=== PATIENT | female | born 1930 | race Caucasian/White ===

== ENCOUNTER 2016-02-10 11:17 | Outpatient (CLI) | payer MEDICARE, OTHER ==
[2013-04-23 13:41] VITALS: BP 148/84
== END 2016-02-10 11:20 ==
LOC: LAB 11:17
PROVIDERS: ATTEND Internal Medicine Cardiovascular Disease
DX: Z51.81 Encounter for therapeutic drug level monitoring (principal); Z79.01 Long term (current) use of anticoagulants; I48.2 Chronic atrial fibrillation
CPT/HCPCS: 36415; 85610

== ENCOUNTER 2016-03-09 11:20 | Outpatient (CLI) | payer MEDICARE, OTHER ==
[2013-04-23 13:41] VITALS: BP 148/84
== END 2016-03-09 11:23 ==
LOC: LAB 11:20
PROVIDERS: ATTEND Internal Medicine Cardiovascular Disease
DX: Z51.81 Encounter for therapeutic drug level monitoring (principal); Z79.01 Long term (current) use of anticoagulants; I48.2 Chronic atrial fibrillation
CPT/HCPCS: 36415; 85610

== ENCOUNTER 2016-04-06 13:23 | Outpatient (CLI) | payer MEDICARE, OTHER ==
[2013-04-23 13:41] VITALS: BP 148/84
== END 2016-04-06 13:24 ==
LOC: LAB 13:23
PROVIDERS: ATTEND Internal Medicine Cardiovascular Disease
DX: Z51.81 Encounter for therapeutic drug level monitoring (principal); Z79.01 Long term (current) use of anticoagulants; I48.91 Unspecified atrial fibrillation
CPT/HCPCS: 36415; 85610

== ENCOUNTER 2016-05-03 13:54 | Outpatient (CLI) | payer MEDICARE, OTHER ==
[2013-04-23 13:41] VITALS: BP 148/84
== END 2016-05-03 13:55 ==
LOC: LAB 13:54
PROVIDERS: ATTEND Internal Medicine Cardiovascular Disease
DX: Z51.81 Encounter for therapeutic drug level monitoring (principal); Z79.01 Long term (current) use of anticoagulants; I48.2 Chronic atrial fibrillation
CPT/HCPCS: 36415; 85610

== ENCOUNTER 2016-05-18 11:08 | Outpatient (CLI) | payer MEDICARE, OTHER ==
[2013-04-23 13:41] VITALS: BP 148/84
== END 2016-05-18 11:10 ==
LOC: LAB 11:08
PROVIDERS: ATTEND Internal Medicine Cardiovascular Disease
DX: Z51.81 Encounter for therapeutic drug level monitoring (principal); Z79.01 Long term (current) use of anticoagulants; I48.2 Chronic atrial fibrillation
CPT/HCPCS: 36415; 85610

== ENCOUNTER 2016-06-01 08:48 | Outpatient (CLI) | payer MEDICARE, BC ==
[2013-04-23 13:41] VITALS: BP 148/84
== END 2016-06-01 08:50 ==
LOC: LAB 08:48
PROVIDERS: ATTEND Internal Medicine Cardiovascular Disease
DX: Z51.81 Encounter for therapeutic drug level monitoring (principal); Z79.01 Long term (current) use of anticoagulants; I48.2 Chronic atrial fibrillation
CPT/HCPCS: 36415; 85610

== ENCOUNTER 2016-06-22 13:18 | Outpatient (CLI) | payer MEDICARE, BC ==
[2013-04-23 13:41] VITALS: BP 148/84
== END 2016-06-22 13:20 ==
LOC: LAB 13:18
PROVIDERS: ATTEND Internal Medicine Cardiovascular Disease
DX: I48.2 Chronic atrial fibrillation (principal)
CPT/HCPCS: 36415; 85610

== ENCOUNTER 2016-07-13 11:29 | Outpatient (CLI) | payer MEDICARE, BC ==
[2013-04-23 13:41] VITALS: BP 148/84
== END 2016-07-13 11:30 ==
LOC: LAB 11:29
PROVIDERS: ATTEND Internal Medicine Cardiovascular Disease
DX: I48.2 Chronic atrial fibrillation (principal)
CPT/HCPCS: 36415; 85610

== ENCOUNTER 2016-07-19 12:38 | Outpatient (CLI) | payer MEDICARE, OTHER ==
[2013-04-23 13:41] VITALS: BP 148/84
[2016-07-19 12:51] LABS: MEAN CORPUSCULAR VOLUME 93.9 fl (80.0-100.0)
[2016-07-19 13:01] LABS: APPEARANCE,URINE Cloudy (CLEAR); COLOR,URINE Yellow (YELLOW); OCCULT BLOOD,URINE 2+ (NEGATIVE); PH URINE 6.5 (5.0 - 8.0); UROBILINOGEN URINE 0.2 Eu (0.2-1.0)
[2016-07-19 13:15] LABS: AMORPHOUS SEDIMENT,UR FEW (NEGATIVE)
[2016-07-19 13:26] LABS: eGFR (African) > 60; eGFR (Non-African) > 60
== END 2016-07-19 12:40 ==
LOC: LAB 12:38
PROVIDERS: ATTEND Family Medicine
DX: I10 Essential (primary) hypertension (principal); R10.9 Unspecified abdominal pain
CPT/HCPCS: 36415; 80053; 81002; 85027; 85610; 87086; 87186

== ENCOUNTER 2016-07-22 14:16 | Outpatient (CLI) | payer MEDICARE, OTHER ==
[2013-04-23 13:41] VITALS: BP 148/84
== END 2016-07-22 14:17 ==
LOC: LAB 14:16
PROVIDERS: ATTEND Internal Medicine Cardiovascular Disease
DX: I48.2 Chronic atrial fibrillation (principal)
CPT/HCPCS: 36415; 85610

== ENCOUNTER 2016-07-26 10:55 | Outpatient (CLI) | payer MEDICARE, OTHER ==
[2013-04-23 13:41] VITALS: BP 148/84
== END 2016-07-26 14:00 ==
LOC: LAB 10:55
PROVIDERS: ATTEND Internal Medicine Cardiovascular Disease
DX: R63.4 Abnormal weight loss (principal); I48.2 Chronic atrial fibrillation
CPT/HCPCS: 36415; 85610

== ENCOUNTER 2016-07-26 12:19 | Outpatient (CLI) | payer MEDICARE, OTHER ==
[2013-04-23 13:41] VITALS: BP 148/84
== END 2016-07-26 13:02 ==
LOC: LAB 12:19
PROVIDERS: ATTEND Family Medicine
DX: E03.9 Hypothyroidism, unspecified (principal)
CPT/HCPCS: 84443

== ENCOUNTER 2016-07-29 09:55 | Outpatient (CLI) | payer MEDICARE, OTHER ==
[2013-04-23 13:41] VITALS: BP 148/84
== END 2016-07-29 10:00 ==
LOC: LAB 09:55
PROVIDERS: ATTEND Internal Medicine Cardiovascular Disease
DX: I48.2 Chronic atrial fibrillation (principal)
CPT/HCPCS: 36415; 85610

== ENCOUNTER 2016-08-01 07:33 | Outpatient (CLI) | payer MEDICARE, OTHER ==
[2013-04-23 13:41] VITALS: BP 148/84
--- NOTE | 2016-08-01 14:10 | Diagnostic Imaging Report ---
CANDI ACOSTA~ [facility] [address] [facility]. [address] [place] [address]. [id number] ~ ~ ~ ~ Report Submission Date: Aug 01, 2016 8:51:18 AM CDT Patient ~ Study Name: LIYA PATEL ~ Date: Aug 01, 2016 7:55:41 AM CDT ~ Modality Type: MR Gender: F ~ Description: MRI BRAIN W/O CONTRAST : 30 ~ Institution: [facility] Physician: CANDI ACOSTA ~ ~ ~ ~ HISTORY: ~86-year-old female with lower extremity weakness. COMPARISON: None available TECHNIQUE: Multiplanar multisequence noncontrast MR images of the brain were performed. FINDINGS: There is global brain atrophy with prominence of the ventricular system and sulci. ~There is moderate to severe high T2-FLAIR signal abnormality in the periventricular and bicerebral white matter. 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 ~There are old lacunar infarcts of the seble and right cerebellum. ~There is encephalomalacia and chronic ischemic changes of the bilateral basal ganglia. ~No intracranial mass, midline shift, hydrocephalus, or signal abnormalities in the supra- or infratentorial juarez or white matter. ~ The diffusion-weighted images are negative for acute infarct. ~Flow voids are present in the major intracranial vessels. ~The corpus callosum, sella, pituitary, and craniovertebral junction are unremarkable. ~The paranasal sinuses and mastoid air cells are clear. There are postoperative changes of bilateral cataract extraction surgery. ~The patient is edentulous. IMPRESSION: Global brain atrophy and chronic ischemic changes without evidence of acute infarct or other acute intracranial process. ~ Electronically signed on Aug 01, 2016 8:51:18 AM CDT by: Emery DRISCOLL
== END 2016-08-01 08:00 ==
LOC: RAD 07:33
PROVIDERS: ATTEND Family Medicine
DX: R25.1 Tremor, unspecified (principal)
CPT/HCPCS: 70551

== ENCOUNTER 2016-08-03 11:22 | Outpatient (CLI) | payer MEDICARE, OTHER ==
[2013-04-23 13:41] VITALS: BP 148/84
== END 2016-08-03 11:23 ==
LOC: LAB 11:22
PROVIDERS: ATTEND Internal Medicine Cardiovascular Disease
DX: I48.2 Chronic atrial fibrillation (principal); Z51.81 Encounter for therapeutic drug level monitoring; Z79.01 Long term (current) use of anticoagulants
CPT/HCPCS: 36415; 85610

== ENCOUNTER 2016-08-17 11:10 | Outpatient (CLI) | payer MEDICARE, OTHER ==
[2013-04-23 13:41] VITALS: BP 148/84
== END 2016-08-17 11:11 ==
LOC: LAB 11:10
PROVIDERS: ATTEND Internal Medicine Cardiovascular Disease
DX: I48.2 Chronic atrial fibrillation (principal)
CPT/HCPCS: 36415; 85610

== ENCOUNTER 2016-08-31 13:58 | Outpatient (CLI) | payer MEDICARE, OTHER ==
[2013-04-23 13:41] VITALS: BP 148/84
== END 2016-08-31 14:00 ==
LOC: LAB 13:58
PROVIDERS: ATTEND Internal Medicine Cardiovascular Disease
DX: I48.2 Chronic atrial fibrillation (principal)
CPT/HCPCS: 36415; 85610

== ENCOUNTER 2016-09-28 12:36 | Outpatient (CLI) | payer MEDICARE, OTHER ==
[2013-04-23 13:41] VITALS: BP 148/84
== END 2016-09-28 12:37 ==
LOC: LAB 12:36
PROVIDERS: ATTEND Internal Medicine Cardiovascular Disease
DX: I48.2 Chronic atrial fibrillation (principal)
CPT/HCPCS: 36415; 85610

== ENCOUNTER 2016-10-27 12:52 | Outpatient (CLI) | payer MEDICARE, OTHER ==
[2013-04-23 13:41] VITALS: BP 148/84
== END 2016-10-27 12:53 ==
LOC: LAB 12:52
PROVIDERS: ATTEND Internal Medicine Cardiovascular Disease
DX: I48.2 Chronic atrial fibrillation (principal)
CPT/HCPCS: 36415; 85610

== ENCOUNTER 2016-11-24 13:46 | Outpatient (CLI) | payer MEDICARE, OTHER ==
[2013-04-23 13:41] VITALS: BP 148/84
== END 2016-11-24 13:47 ==
LOC: LAB 13:46
PROVIDERS: ATTEND Internal Medicine Cardiovascular Disease
DX: I48.2 Chronic atrial fibrillation (principal)
CPT/HCPCS: 36415; 85610

== ENCOUNTER 2016-12-23 11:35 | Outpatient (CLI) | payer MEDICARE, OTHER ==
[2013-04-23 13:41] VITALS: BP 148/84
== END 2016-12-23 13:27 ==
LOC: LAB 11:35
PROVIDERS: ATTEND Internal Medicine Cardiovascular Disease
DX: I48.2 Chronic atrial fibrillation (principal)
CPT/HCPCS: 36415; 85610

== ENCOUNTER → 2017-01-20 | Outpatient (CLI) | payer MEDICARE, OTHER ==
[2013-04-23 13:41] VITALS: BP 148/84
== END ==
LOC: LAB 14:58
PROVIDERS: ATTEND Internal Medicine Cardiovascular Disease
DX: Z79.01 Long term (current) use of anticoagulants (principal)
CPT/HCPCS: 36415; 85610

== ENCOUNTER 2017-02-03 11:25 | Outpatient (CLI) | payer MEDICARE, OTHER ==
[2013-04-23 13:41] VITALS: BP 148/84
== END 2017-02-03 11:26 ==
LOC: LAB 11:25
PROVIDERS: ATTEND Internal Medicine Cardiovascular Disease
DX: Z79.01 Long term (current) use of anticoagulants (principal)
CPT/HCPCS: 36415; 85610

== ENCOUNTER 2017-03-03 11:38 | Outpatient (CLI) | payer MEDICARE, OTHER ==
[2013-04-23 13:41] VITALS: BP 148/84
== END 2017-03-03 11:40 ==
LOC: LAB 11:38
PROVIDERS: ATTEND Internal Medicine Cardiovascular Disease
DX: Z79.01 Long term (current) use of anticoagulants (principal)
CPT/HCPCS: 36415; 85610

== ENCOUNTER 2017-04-01 11:31 | Outpatient (CLI) | payer MEDICARE, OTHER ==
[2013-04-23 13:41] VITALS: BP 148/84
== END 2017-04-01 11:33 ==
LOC: LAB 11:31
PROVIDERS: ATTEND Internal Medicine Cardiovascular Disease
DX: Z79.01 Long term (current) use of anticoagulants (principal)
CPT/HCPCS: 36415; 85610

== ENCOUNTER 2017-04-29 14:21 | Outpatient (CLI) | payer MEDICARE, OTHER ==
[2013-04-23 13:41] VITALS: BP 148/84
== END 2017-04-29 14:22 ==
LOC: LAB 14:21
PROVIDERS: ATTEND Internal Medicine Cardiovascular Disease
DX: Z79.01 Long term (current) use of anticoagulants (principal)
CPT/HCPCS: 36415; 85610

== ENCOUNTER 2017-05-13 11:06 | Outpatient (CLI) | payer MEDICARE, OTHER ==
[2013-04-23 13:41] VITALS: BP 148/84
== END 2017-05-13 11:10 ==
LOC: LAB 11:06
PROVIDERS: ATTEND Internal Medicine Cardiovascular Disease
DX: Z79.01 Long term (current) use of anticoagulants (principal)
CPT/HCPCS: 36415; 85610

== ENCOUNTER 2017-05-31 14:13 | Outpatient (CLI) | payer MEDICARE, OTHER ==
[2013-04-23 13:41] VITALS: BP 148/84
== END 2017-05-31 14:14 ==
LOC: LAB 14:13
PROVIDERS: ATTEND Internal Medicine Cardiovascular Disease
DX: Z79.01 Long term (current) use of anticoagulants (principal)
CPT/HCPCS: 36415; 85610

== ENCOUNTER 2017-06-14 10:37 | Outpatient (CLI) | payer MEDICARE, OTHER ==
[2013-04-23 13:41] VITALS: BP 148/84
== END 2017-06-14 10:40 ==
LOC: LAB 10:37
PROVIDERS: ATTEND Internal Medicine Cardiovascular Disease
DX: Z79.01 Long term (current) use of anticoagulants (principal)
CPT/HCPCS: 36415; 85610

== ENCOUNTER 2017-07-12 13:37 | Outpatient (CLI) | payer MEDICARE, OTHER ==
[2013-04-23 13:41] VITALS: BP 148/84
== END 2017-07-12 13:40 ==
LOC: LAB 13:37
PROVIDERS: ATTEND Internal Medicine Cardiovascular Disease
DX: Z79.01 Long term (current) use of anticoagulants (principal)
CPT/HCPCS: 36415; 85610

== ENCOUNTER 2017-08-11 10:06 | Outpatient (CLI) | payer MEDICARE, OTHER ==
[2013-04-23 13:41] VITALS: BP 148/84
== END 2017-08-11 10:08 ==
LOC: LAB 10:06
PROVIDERS: ATTEND Internal Medicine Cardiovascular Disease
DX: Z79.01 Long term (current) use of anticoagulants (principal)
CPT/HCPCS: 36415; 85610

== ENCOUNTER 2017-09-08 11:46 | Outpatient (CLI) | payer MEDICARE, OTHER ==
[2013-04-23 13:41] VITALS: BP 148/84
== END 2017-09-08 11:48 ==
LOC: LAB 11:46
PROVIDERS: ATTEND Internal Medicine Cardiovascular Disease
DX: Z79.01 Long term (current) use of anticoagulants (principal)
CPT/HCPCS: 36415; 85610

== ENCOUNTER 2017-09-22 11:12 | Outpatient (CLI) | payer MEDICARE, OTHER ==
[2013-04-23 13:41] VITALS: BP 148/84
== END 2017-09-22 11:13 ==
LOC: LAB 11:12
PROVIDERS: ATTEND Internal Medicine Cardiovascular Disease
DX: Z79.01 Long term (current) use of anticoagulants (principal)
CPT/HCPCS: 36415; 85610

== ENCOUNTER 2017-09-30 10:55 | Outpatient (CLI) | payer MEDICARE, OTHER ==
[2013-04-23 13:41] VITALS: BP 148/84
--- NOTE | 2017-09-30 19:43 | Diagnostic Imaging Report ---
CANDI ACOSTA [facility] [address] [facility] [address] [address] Report Submission Date: Sep 30, 2017 12:16:55 PM CDT Patient Study Name: LIYA PATEL Date: Sep 30, 2017 11:04:51 AM CDT Modality Type: DX Gender: F Description: SHOULDER : 30 Institution: [facility] Physician: CANDI ACOSTA Right shoulder History: Pain after fall 4 weeks ago Three views of the right shoulder were obtained which demonstrate acute fractures involving the right posterolateral 3rd, 4th and 5th ribs and old fracture of right posterolateral 6th rib. There is mild narrowing of the subacromial joint space. The acromioclavicular joint is intact. There is no evidence for acute fracture or dislocation of the right shoulder. Impression: Acute and mildly displaced fractures are present of the right 3rd, 4th and 5th ribs. There is an old, healed fracture of the 6th posterolateral right rib. No pneumothorax. Narrowing of subacromial joint space. No evidence for acute shoulder fracture. Electronically signed on Sep 30, 2017 12:16:55 PM CDT by: Michaela DRISCOLL
--- NOTE | 2017-09-30 19:44 | Diagnostic Imaging Report ---
CANDI ACOSTA [facility] [address] [facility] [address] Report Submission Date: Sep 30, 2017 12:17:46 PM CDT Patient Study Name: LIYA PATEL Date: Sep 30, 2017 11:13:08 AM CDT Modality Type: DX Gender: F Description: UPPER EXTREMITY : 30 Institution: [facility] Physician: CANDI ACOSTA Right humerus History: Pain after a fall 4 weeks ago Three views of the right humerus demonstrate no evidence for acute fracture or dislocation. Impression: No evidence for acute fracture or dislocation of the right humerus. Electronically signed on Sep 30, 2017 12:17:46 PM CDT by: Michaela DRISCOLL
== END 2017-09-30 11:50 ==
LOC: RAD 10:55
PROVIDERS: ATTEND Family Medicine
DX: M25.511 Pain in right shoulder (principal)
CPT/HCPCS: 73030; 73060

== ENCOUNTER 2017-10-06 13:41 | Outpatient (CLI) | payer MEDICARE, OTHER ==
[2013-04-23 13:41] VITALS: BP 148/84
== END 2017-10-06 13:42 ==
LOC: LAB 13:41
PROVIDERS: ATTEND Internal Medicine Cardiovascular Disease
DX: Z79.01 Long term (current) use of anticoagulants (principal)
CPT/HCPCS: 36415; 85610

== ENCOUNTER 2017-10-21 11:38 | Outpatient (CLI) | payer MEDICARE, OTHER ==
[2013-04-23 13:41] VITALS: BP 148/84
== END 2017-10-21 11:40 ==
LOC: LAB 11:38
PROVIDERS: ATTEND Internal Medicine Cardiovascular Disease
DX: Z79.01 Long term (current) use of anticoagulants (principal)
CPT/HCPCS: 36415; 85610

== ENCOUNTER 2017-10-25 14:34 | Outpatient (CLI) | payer MEDICARE, OTHER ==
[2013-04-23 13:41] VITALS: BP 148/84
[2017-10-25 16:34] LABS: eGFR (Non-African) > 60
[2017-10-26 02:21] LABS: BASO % 0.3 % (0.0-1.5); EOS % 2.4 % (0.0-6.8); LYMPH ABS # 1.26 thou/uL (0.60-4.00); MCH. 31.5 pg (28.0-34.0); MCV 97.2 fL (80.0-100.0); MONOCYTE ABS # 0.39 thou/uL (0.00-0.90); PLATELET COUNT 221 thou/uL (130-400)
== END 2017-10-25 14:35 ==
LOC: LAB 14:34
PROVIDERS: ATTEND Nurse Practitioner
DX: Z79.01 Long term (current) use of anticoagulants (principal); I10 Essential (primary) hypertension; I48.2 Chronic atrial fibrillation
CPT/HCPCS: 36415; 80053; 80061; 84443; 85025; 85610

== ENCOUNTER 2017-11-03 09:14 | Outpatient (CLI) | payer MEDICARE, OTHER ==
[2013-04-23 13:41] VITALS: BP 148/84
== END 2017-11-03 09:16 ==
LOC: LAB 09:14
PROVIDERS: ATTEND Internal Medicine Cardiovascular Disease
DX: Z79.01 Long term (current) use of anticoagulants (principal)
CPT/HCPCS: 36415; 85610

== ENCOUNTER 2017-11-17 10:13 | Outpatient (CLI) | payer MEDICARE, OTHER ==
[2013-04-23 13:41] VITALS: BP 148/84
== END 2017-11-17 10:14 ==
LOC: LAB 10:13
PROVIDERS: ATTEND Internal Medicine Cardiovascular Disease
DX: Z79.01 Long term (current) use of anticoagulants (principal)
CPT/HCPCS: 36415; 85610

== ENCOUNTER 2017-12-01 10:39 | Outpatient (CLI) | payer MEDICARE, OTHER ==
[2013-04-23 13:41] VITALS: BP 148/84
== END 2017-12-01 15:27 ==
LOC: LAB 10:39
PROVIDERS: ATTEND Internal Medicine Cardiovascular Disease
DX: Z79.01 Long term (current) use of anticoagulants (principal)
CPT/HCPCS: 36415; 85610

== ENCOUNTER 2017-12-08 11:28 | Outpatient (CLI) | payer MEDICARE, OTHER ==
[2013-04-23 13:41] VITALS: BP 148/84
== END 2017-12-08 11:30 ==
LOC: LAB 11:28
PROVIDERS: ATTEND Internal Medicine Cardiovascular Disease
DX: Z79.01 Long term (current) use of anticoagulants (principal)
CPT/HCPCS: 36415; 85610

== ENCOUNTER 2017-12-22 10:49 | Outpatient (CLI) | payer MEDICARE, OTHER ==
[2013-04-23 13:41] VITALS: BP 148/84
== END 2017-12-22 10:54 | disposition home or self-care (01) ==
LOC: LAB 10:49
PROVIDERS: ATTEND Internal Medicine Cardiovascular Disease
DX: Z79.01 Long term (current) use of anticoagulants (principal)
CPT/HCPCS: 36415; 85610

== ENCOUNTER 2018-01-05 10:48 | Outpatient (CLI) | payer MEDICARE, OTHER ==
[2013-04-23 13:41] VITALS: BP 148/84
== END 2018-01-05 10:50 ==
LOC: LAB 10:48
PROVIDERS: ATTEND Internal Medicine Cardiovascular Disease
DX: Z79.01 Long term (current) use of anticoagulants (principal)
CPT/HCPCS: 36415; 85610

== ENCOUNTER 2018-01-19 11:26 | Outpatient (CLI) | payer MEDICARE, OTHER ==
[2013-04-23 13:41] VITALS: BP 148/84
== END 2018-01-19 14:12 ==
LOC: LAB 11:26
PROVIDERS: ATTEND Internal Medicine Cardiovascular Disease
DX: Z79.01 Long term (current) use of anticoagulants (principal); Z51.81 Encounter for therapeutic drug level monitoring
CPT/HCPCS: 36415; 85610

== ENCOUNTER 2018-02-02 11:26 | Outpatient (CLI) | payer MEDICARE, OTHER ==
[2013-04-23 13:41] VITALS: BP 148/84
== END 2018-02-02 11:28 ==
LOC: LAB 11:26
PROVIDERS: ATTEND Internal Medicine Cardiovascular Disease
DX: Z79.01 Long term (current) use of anticoagulants (principal)
CPT/HCPCS: 36415; 85610

== ENCOUNTER 2018-02-16 10:10 | Outpatient (CLI) | payer MEDICARE, OTHER ==
[2013-04-23 13:41] VITALS: BP 148/84
== END 2018-02-16 10:12 ==
LOC: LAB 10:10
PROVIDERS: ATTEND Internal Medicine Cardiovascular Disease
DX: Z79.01 Long term (current) use of anticoagulants (principal)
CPT/HCPCS: 36415; 85610

== ENCOUNTER 2018-03-02 11:33 | Outpatient (CLI) | payer MEDICARE, OTHER ==
[2013-04-23 13:41] VITALS: BP 148/84
== END 2018-03-02 11:35 ==
LOC: LAB 11:33
PROVIDERS: ATTEND Internal Medicine Cardiovascular Disease
DX: Z79.01 Long term (current) use of anticoagulants (principal)
CPT/HCPCS: 36415; 85610

== ENCOUNTER 2018-03-31 09:36 | Outpatient (CLI) | payer MEDICARE, OTHER ==
[2013-04-23 13:41] VITALS: BP 148/84
== END 2018-03-31 09:45 ==
LOC: LAB 09:36
PROVIDERS: ATTEND Internal Medicine Cardiovascular Disease
DX: Z79.01 Long term (current) use of anticoagulants (principal)
CPT/HCPCS: 36415; 85610

== ENCOUNTER 2018-04-27 10:47 | Outpatient (CLI) | payer MEDICARE, OTHER ==
[2013-04-23 13:41] VITALS: BP 148/84
== END 2018-04-27 10:50 ==
LOC: LAB 10:47
PROVIDERS: ATTEND Internal Medicine Cardiovascular Disease
DX: Z79.01 Long term (current) use of anticoagulants (principal)
CPT/HCPCS: 36415; 85610

== ENCOUNTER 2018-05-18 10:14 | Outpatient (CLI) | payer MEDICARE, OTHER ==
[2013-04-23 13:41] VITALS: BP 148/84
== END 2018-05-18 12:57 ==
LOC: LAB 10:14
PROVIDERS: ATTEND Internal Medicine Cardiovascular Disease
DX: Z79.01 Long term (current) use of anticoagulants (principal)
CPT/HCPCS: 36415; 85610

== ENCOUNTER 2018-05-20 18:57 | Emergency (ER) | payer MEDICARE, OTHER ==
--- NOTE | 2018-05-20 19:22 | ED Physician Documentation ---
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 Pt went down on both knees and had an abrasion to her face with some swelling. Pt has FROM in both knees with superficial abrasions. No pain with weight bearing. Pt has swelling of her L cheeck with some ecchymosis. Pt is on coumadin. INR 2 days ago was 3.1.) - ROS CONST: no problems EYES/ENT: other CVS/RESP: none GI/: none MS/SKIN/LYMPH: other (abrasions b/l knees; abrasion chin and L cheek with swelling and ecchymosis) NEURO/PSYCH: denies: headache, dizziness, tingling - PAST HX Past History: A-Fib, hypertension Allergies/Adverse Reactions: Allergies Allergy/AdvReac Type Severity Reaction Status Date / Time ADRISTAN Allergy Uncoded 05/20/18 19:33 Home Medications: Ambulatory Orders Medication Instructions Recorded Warfarin Sodium 2 mg PO [id number] 05/20/18 Warfarin Sodium 4 mg PO [id number] 05/20/18 - SOCIAL HX Smoking History: non-smoker - FAMILY HX Family History: No - VITAL SIGNS Vital Signs: Vital Signs Temp Pulse Resp BP Pulse Ox 148/84 04/23/13 13:38 - REVIEWED ASSESSMENTS Nursing Assessment Reviewed: Yes Vitals Reviewed: Yes Progress - Progress Progress: CT head: 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 Atrophy and chronic periventricular microvascular ischemic changes are present. There is no evidence of intracranial mass effect, hemorrhage, or acute hydrocephalus. The lateral ventricles are symmetrical and the 4th ventricle is midline without shift. No acute brain parenchymal changes or extra-axial fluid collections are identified. The posterior fossa contents are within normal limits. A left facial soft tissue infraorbital hematoma is present. The calvarium is intact. The visualized sinuses and mastoid air cells are clear. IMPRESSION: Multiple chronic infarcts. Atrophy and chronic periventricular microvascular ischemic changes. Left infraorbital hematoma. BP 180/110 Propranolol 10 mg po BP 160/100 after 30 min Follow up with your primary provider for recheck of your blood pressure and review of blood pressure medications. Return to ER if you develop new symptoms such as numbness or weakness in an extremity, changes in vision or have new concerns. General Adult Physical Exam - PHYSICAL EXAM GENERAL APPEARANCE: mild distress EENT: eye inspection normal, ENT inspection normal, pharynx normal NECK: normal inspection, supple RESPIRATORY: no resp distress, chest non-tender, breath sounds normal CVS: irregularly irregular rhy ABDOMEN: soft, no organomegaly, normal bowel sounds BACK: normal inspection, no CVA tenderness SKIN: other (abrasions b/l knees, chin, L cheek with swelling c/w hematoma and ecchymosis) EXTREMITIES: normal range of motion, other (abrasions b/l knees) NEURO: oriented X3, CN's nml as tested, motor nml, sensation nml Discharge Clincal Impression: Minor head trauma Fall Qualifiers: Encounter type: initial encounter Qualified Code(s): W19.XXXA - Unspecified fall, initial encounter HTN (hypertension) Qualifiers: Hypertension type: unspecified Qualified Code(s): I10 - Essential (primary) hypertension Referrals: Issa Benz MD [Primary Care Provider] - Condition: Stable Disposition: 01 HOME, SELF-CARE Decision to Admit: NO Decision Time: 21:40
[2018-05-20] MEDS ORDERED: PROPRANOLOL HCL 20 MG TABLET PO STA (20:21)
[2018-05-20 22:25] VITALS: BP 161/103
--- NOTE | 2018-05-21 06:12 | Diagnostic Imaging Report ---
RAGINI MOSS [facility] [address] [facility] [address] [place], [place]. [address] Report Submission Date: May 20, 2018 8:13:00 PM CDT Patient Study Name: LIYA PATEL Date: May 20, 2018 7:47:55 PM CDT Modality Type: CT\SR Gender: F Description: CT BRAIN W/O CONTRAST : 30 Institution: [facility] Physician: RAGINI MOSS CT brain noncontrast Date of study: May 20, 2018. CLINICAL HISTORY: FALL FROM STANDING, HEAD TRAUMA, SWELLING AROUND LEFT EYE (Hx) / ITS.REASON fall from standing, head trauma TECHNIQUE: 5 mm contiguous axial images of the brain, noncontrast. FINDINGS: 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 Atrophy and chronic periventricular microvascular ischemic changes are present. There is no evidence of intracranial mass effect, hemorrhage, or acute hydrocephalus. The lateral ventricles are symmetrical and the 4th ventricle is midline without shift. No acute brain parenchymal changes or extra-axial fluid collections are identified. The posterior fossa contents are within normal limits. A left facial soft tissue infraorbital hematoma is present. The calvarium is intact. The visualized sinuses and mastoid air cells are clear. IMPRESSION: Multiple chronic infarcts. Atrophy and chronic periventricular microvascular ischemic changes. Left infraorbital hematoma. Electronically signed on May 20, 2018 8:13:00 PM CDT by: Linda DRISCOLL
== END 2018-05-20 21:15 | disposition home or self-care (01) ==
LOC: ED 18:57
DX: S00.81XA Abrasion of other part of head, initial encounter (principal); S80.212A Abrasion, left knee, initial encounter; S80.211A Abrasion, right knee, initial encounter; S09.90XA Unspecified injury of head, initial encounter; I10 Essential (primary) hypertension; W01.0XXA Fall on same level from slipping, tripping and stumbling without subsequent striking against object, initial encounter; Y93.9 Activity, unspecified; Y92.9 Unspecified place or not applicable
CPT/HCPCS: 70450; 99283; 99284

== ENCOUNTER 2018-06-26 11:04 | Outpatient (CLI) | payer MEDICARE, OTHER | END 2018-06-26 11:06 | LOC: LAB 11:04 | PROVIDERS: ATTEND Internal Medicine Cardiovascular Disease | DX: Z79.01 Long term (current) use of anticoagulants (principal) | CPT/HCPCS: 36415; 85610 ==

== ENCOUNTER 2018-08-07 11:32 | Outpatient (CLI) | payer MEDICARE, OTHER | END 2018-08-07 11:33 | LOC: LAB 11:32 | PROVIDERS: ATTEND Internal Medicine Cardiovascular Disease | DX: Z79.01 Long term (current) use of anticoagulants (principal); Z51.81 Encounter for therapeutic drug level monitoring | CPT/HCPCS: 36415; 85610 ==

== ENCOUNTER 2018-10-02 11:45 | Outpatient (CLI) | payer MEDICARE, OTHER | END 2018-10-02 11:47 | LOC: LAB 11:45 | PROVIDERS: ATTEND Internal Medicine Cardiovascular Disease | DX: Z51.81 Encounter for therapeutic drug level monitoring (principal); Z79.01 Long term (current) use of anticoagulants | CPT/HCPCS: 36415; 85610 ==

== ENCOUNTER 2018-10-16 11:36 | Outpatient (CLI) | payer MEDICARE, OTHER | END 2018-10-16 11:38 | LOC: LAB 11:36 | PROVIDERS: ATTEND Internal Medicine Cardiovascular Disease | DX: Z51.81 Encounter for therapeutic drug level monitoring (principal); Z79.01 Long term (current) use of anticoagulants | CPT/HCPCS: 36415; 85610 ==

== ENCOUNTER 2018-10-23 11:41 | Outpatient (CLI) | payer MEDICARE, OTHER | END 2018-10-23 11:43 | LOC: LAB 11:41 | PROVIDERS: ATTEND Internal Medicine Cardiovascular Disease | DX: Z51.81 Encounter for therapeutic drug level monitoring (principal); Z79.01 Long term (current) use of anticoagulants | CPT/HCPCS: 36415; 85610 ==

== ENCOUNTER 2018-10-30 11:06 | Outpatient (CLI) | payer MEDICARE, OTHER | END 2018-10-30 11:08 | LOC: LAB 11:06 | PROVIDERS: ATTEND Internal Medicine Cardiovascular Disease | DX: Z79.01 Long term (current) use of anticoagulants (principal); Z51.81 Encounter for therapeutic drug level monitoring | CPT/HCPCS: 36415; 85610 ==

== ENCOUNTER 2018-11-13 11:29 | Outpatient (CLI) | payer MEDICARE, OTHER | END 2018-11-13 11:35 | LOC: LAB 11:29 | PROVIDERS: ATTEND Internal Medicine Cardiovascular Disease | DX: Z51.81 Encounter for therapeutic drug level monitoring (principal); Z79.01 Long term (current) use of anticoagulants | CPT/HCPCS: 36415; 85610 ==

== ENCOUNTER 2018-11-27 11:04 | Outpatient (CLI) | payer MEDICARE, OTHER | END 2018-11-27 11:09 | LOC: LAB 11:04 | PROVIDERS: ATTEND Internal Medicine Cardiovascular Disease | DX: Z79.01 Long term (current) use of anticoagulants (principal) | CPT/HCPCS: 36415; 85610 ==

== ENCOUNTER 2018-12-11 09:44 | Outpatient (CLI) | payer MEDICARE, OTHER | END 2018-12-11 09:49 | LOC: LAB 09:44 | PROVIDERS: ATTEND Internal Medicine Cardiovascular Disease | DX: Z51.81 Encounter for therapeutic drug level monitoring (principal); Z79.01 Long term (current) use of anticoagulants | CPT/HCPCS: 36415; 85610 ==

== ENCOUNTER 2018-12-25 10:44 | Outpatient (CLI) | payer MEDICARE, OTHER | END 2018-12-25 10:49 | LOC: LAB 10:44 | PROVIDERS: ATTEND Internal Medicine Cardiovascular Disease | DX: Z51.81 Encounter for therapeutic drug level monitoring (principal); Z79.01 Long term (current) use of anticoagulants | CPT/HCPCS: 36415; 85610 ==

== ENCOUNTER 2019-01-15 11:27 | Outpatient (CLI) | payer MEDICARE, OTHER | END 2019-01-15 11:32 | LOC: LAB 11:27 | PROVIDERS: ATTEND Internal Medicine Cardiovascular Disease | DX: Z51.81 Encounter for therapeutic drug level monitoring (principal); Z79.01 Long term (current) use of anticoagulants | CPT/HCPCS: 36415; 85610 ==

== ENCOUNTER 2019-02-12 12:42 | Outpatient (CLI) | payer MEDICARE, OTHER | END 2019-02-12 12:47 | LOC: LAB 12:42 | PROVIDERS: ATTEND Internal Medicine Cardiovascular Disease | DX: Z51.81 Encounter for therapeutic drug level monitoring (principal); Z79.01 Long term (current) use of anticoagulants | CPT/HCPCS: 36415; 85610 ==

== ENCOUNTER 2019-02-21 17:25 | Outpatient (CLI) | payer MEDICARE, OTHER | END 2019-02-21 17:30 | LOC: LABRHC 17:25 | PROVIDERS: ATTEND Family Medicine | DX: I10 Essential (primary) hypertension (principal) | CPT/HCPCS: 80053; 85025 ==